=== PATIENT | female | born 1995 | race Caucasian/White ===

== ENCOUNTER 2016-11-21 14:52 | Outpatient (CLI) | payer BC ==
[2016-11-23 19:46] LABS: Chlamydia by PCR Not Detected (NotDetected); GC by PCR Not Detected (NotDetected)
== END 2016-11-21 14:53 | disposition home or self-care (01) ==
LOC: MADLABBHPM 14:52
PROVIDERS: ATTEND Family Medicine
DX: N89.8 Other specified noninflammatory disorders of vagina (principal)
CPT/HCPCS: 36415; 87480; 87491; 87510; 87591; 87660